=== PATIENT | male | born 1955 | race Caucasian/White ===

== ENCOUNTER 2016-10-07 16:36 | Observation (INO) | payer BC ==
[~2016-10-07] VITALS: Ht 180.3 cm; Wt 94.9 kg
[~2016-10-07 16:36] MED LIST: ASPI81TA3 PO; ATOR20TA65 PO; CANA300T PO; GABA100C14 PO; HYDR-906 PO; INSU100C SQ; LEVEM SC; LISI10TA2 PO; METF1000 PO; ONDA4TAB11 PO; REPA2TAB6 PO
[2016-10-07] MEDS ORDERED: SOD CHLORIDE 0.9% 1,000 ML IV STA (19:28)
[2016-10-07] MEDS ORDERED: ASPIRIN 325 MG TAB PO STA (19:28)
[2016-10-07 19:59] LABS: ADD SCAN DIFF NO
--- NOTE | 2016-10-07 20:04 | RADRPT ---
PROCEDURE: CT Brain without contrast. CLINICAL INDICATION: Left sided numbness TECHNIQUE: A CT of the brain was performed on a [employer] 64-slice CT scanner utilizing axial imaging from the skull base through the vertex without IV contrast. Multiplanar reformatted images were made. Images were reviewed on a PACS workstation. The CTDIvol is 44.8 mGy and the DLP is 720 mGycm. COMPARISON: None FINDINGS: There is no intracranial hemorrhage, mass effect, or midline shift. No extra-axial fluid collection is seen. The ventricles and sulci are normal in size and configuration. The density of the brain is normal, and the frausto white matter differentiation appears well-preserved. Scattered bilateral etho id air cell opacification. Otherwise, the visualized paranasal sinuses and osseous structures are gr ossly unremarkable. IMPRESSION: 1. No evidence of acute intracranial pathology. If there is continued clinical concern for acute in tracranial ischemia, consider MRI for further evaluation. Physician Ryan Date Time Electronically viewed and signed by Physician Ryan on 10/07/2016 20:03 ML/
[2016-10-07] MEDS ORDERED: IBUP-1542 PO (20:09)
[2016-10-07] MEDS ORDERED: NAPR125O4 PO (20:11)
[2016-10-07 20:18] LABS: INR 0.97; PROTIME 12.9 Sec (12.2-14.2)
--- NOTE | 2016-10-07 20:24 | RADRPT ---
PROCEDURE: XR Chest. CLINICAL INDICATION: Possible Stroke TECHNIQUE: Single frontal view of the chest was obtained. COMPARISON: None. FINDINGS: The heart and mediastinum are within normal limits. The lungs are clear. The aortic arch is calcified. There is no significant pleural effusion or pneumothorax. IMPRESSION: No acute disease. Aortic atherosclerosis. RPTAT: EE Physician Raven Date Time Electronically viewed and signed by Basim Gallo Physician on 10/07/2016 20:23 RA/
[2016-10-07 20:27] LABS: ALBUMIN 5.1 g/dl (3.3-4.9); CHLORIDE 96 mmol/L (97-110); PARTIAL THROMBOPLASTIN TIME 27.7 Sec (25.0-35.0); SODIUM 139 mmol/L (135-144)
[2016-10-07 20:28] LABS: BASOPHIL # 0.1 10^3/ul (0.0-0.1); BASOPHILS % 0.8 % (0.0-2.0); EOSINOPHILS # 0.2 10^3/ul (0.0-0.5); EOSINOPHILS % 2.8 % (0.0-7.0); HEMATOCRIT 49.5 % (42.0-52.0); HEMOGLOBIN 16.3 g/dl (14.0-18.0); LYMPHOCYTES # 1.7 10^3/ul (0.8-2.9); LYMPHOCYTES % 28.7 % (15.0-51.0); MEAN CORPUSCULAR HEMOGLOBIN 29.9 pg (29.0-33.0); MEAN CORPUSCULAR HGB CONC 32.9 g/dl (32.0-37.0); MEAN CORPUSCULAR VOLUME 90.7 fl (82.0-101.0); MEAN PLATELET VOLUME 10.2 fl (7.4-10.4); MONOCYTE # 1.1 10^3/ul (0.3-0.9); MONOCYTES % 17.5 % (0.0-11.0); NEUTROPHILS % 49.7 % (39.0-77.0); PLATELET COUNT 240 10^3/UL (140-415); RED BLOOD COUNT 5.46 10^6/ul (4.70-6.10); RED CELL DISTRIBUTION WIDTH 14.6 % (11.5-14.5); WHITE BLOOD COUNT 6.1 10^3/ul (4.8-10.8)
[2016-10-07 20:29] LABS: CREATININE 0.82 mg/dl (0.61-1.24)
[2016-10-07 20:30] LABS: ALANINE AMINOTRANSFERASE 34 IU/L (13-69); ALKALINE PHOSPHATASE 49 IU/L (42-121); ANION GAP 20 (8-16); ASPARTATE AMINO TRANSFERASE 27 IU/L (15-46); BILIRUBIN,INDIRECT 0.5 mg/dl (0-1.1); BILIRUBIN,TOTAL 0.5 mg/dl (0.2-1.3); BLOOD UREA NITROGEN 25 mg/dl (7-20); CALCIUM 10.7 mg/dl (8.4-10.2); CARBON DIOXIDE 27 mmol/L (21-31); GLUCOSE 103 mg/dl (70-220); TOTAL PROTEIN 8.5 g/dl (6.1-8.1)
[2016-10-07] MEDS ORDERED: SOD CHLORIDE 0.9% 1,000 ML IV SCH (21:47)
[2016-10-07 21:48] LABS: TROPONIN-I < 0.012 ng/ml (0.00-0.12)
--- NOTE | 2016-10-07 21:52 | ERA ---
ER Documentation Chief Complaint Date/Time DATE: 10/07/16 TIME: 21:50 Chief Complaint PT C/O LEFT SIDED FACIAL NUMBNESS LASTING 30 MINS, GONE NOW HPI This is a 61-year-old male who states at 5 PM developed some numbness in his fourth and fifth digits on his left hand lasted 10 minutes and spread to his hand entire teeth and into the forearm and up into the arm. He had another 10 minutes of numbness of the left upper extremity. The numbness then spread into the left face and tongue and gums for another 10 minutes or so then resolved. He said the entire episode lasted 35 minutes. He had no weakness no slurred speech no visual change completely asymptomatic now. Patient has a history of diabetes, hypertension, high cholesterol, no prior history of stroke ROS All systems reviewed and are negative except as per history of present illness. Medications Home Meds Active Scripts Ondansetron (Zofran Odt) 4 Mg Tab.rapdis, 4 MG PO Q6, #10 Prov:CLARE LUA 04/24/16 Reported Medications Naproxen* (Naproxen*) 125 Mg/5 Ml Oral.susp, 500 MG PO BID, ML 10/07/16 Ibuprofen* (Ibuprofen*) 600 Mg Tablet, 600 MG PO Q8, TAB 10/07/16 Gabapentin* (Gabapentin*) 100 Mg Capsule, 100 MG PO DAILY, #90 CAP 04/24/16 Insulin Detemir (Levemir) 100 Unit/1 Ml Vial, 18 UNIT SC QAM, VIAL 04/24/16 Insulin Lispro (Humalog) 100 Unit/1 Ml Cartridge, 6 UNIT SQ QHS 04/24/16 Aspirin* (Aspirin* Chew) 81 Mg Tab.chew, 81 MG PO DAILY, TAB.CHEW 10/19/15 Atorvastatin Calcium (Atorvastatin Calcium) 20 Mg Tablet, 20 MG PO QHS, #90 10/19/15 Lisinopril* (Lisinopril*) 10 Mg Tablet, 10 MG PO DAILY, #90 10/19/15 Metformin Hcl* (Metformin Hcl*) 1,000 Mg Tablet, 1000 MG PO BID, #180 10/19/15 Canagliflozin (Invokana) 300 Mg Tablet, 300 MG PO DAILY, #90 10/19/15 Discontinued Reported Medications Repaglinide* (Prandin*) 2 Mg Tablet, 4 MG PO TID, #540 10/19/15 Discontinued Scripts Hydrocodone/Acetaminophen (Frederick 5-325 Tablet) 1 Each Tablet, 1 EACH PO Q6, #10 TAB Prov:CLARE LUA DO 04/24/16 Allergies Allergies: Coded Allergies: No Known Allergy (Unverified , 10/07/16) PMhx/Soc History of Surgery: Yes (INGUINAL HERNIA ) Anesthesia Reaction: No Hx Neurological Disorder: No Hx Respiratory Disorders: No Hx Cardiac Disorders: No Hx Psychiatric Problems: No Hx Miscellaneous Medical Probl: Yes (DM) Hx Alcohol Use: No Hx Substance Use: No Hx Tobacco Use: No Smoking Status: Never smoker FmHx Family History: No coronary disease Physical Exam Vitals Vital Signs Date Time Temp Pulse Resp B/P Pulse Ox O2 Delivery O2 Flow Rate FiO2 10/07/16 16:51 98.3 90 17 142/77 90 Physical Exam Const: Well-developed, well-nourished Head: Atraumatic, normocephalic Eyes: Normal Conjunctiva, PERRLA, EOMI, normal sclera, no nystagmus ENT: Normal External Ears, Nose and Mouth, moist mucus membranes. Neck: Full range of motion. No meningismus, no lymphadenopathy. Resp: Clear to auscultation bilaterally, no wheezing, rhonchi, rales Cardio: Regular rate and rhythm, no murmurs, S1 S2 present Abd: Soft, non tender x 4, non distended. Normal bowel sounds, no guarding or rebound, no pulsitile abdominal masses or bruits Skin: No petechiae or rashes, no ecchymosis , no maculopapular rash Back: No midline or flank tenderness Ext: No cyanosis, or edema, FROM x 4, normal inspection, neurovascularly intact x 4 Neur: Awake and alert, STR 5/5 x 4, sensation intact x 4, no focal findings, cerebellum intact Psych: Normal Mood and Affect Result Diagram: 10/07/16193910/07/161939 Results 24 hrs Laboratory Tests Test 10/07/16 19:40 White Blood Count 6.110^3/ul Red Blood Count 5.4610^6/ul Hemoglobin 16.3g/dl Hematocrit 49.5% Mean Corpuscular Volume 90.7fl Mean Corpuscular Hemoglobin 29.9pg Mean Corpuscular Hemoglobin Concent 32.9g/dl Red Cell Distribution Width 14.6% Platelet Count 45240^3/UL Mean Platelet Volume 10.2fl Neutrophils % 49.7% Lymphocytes % 28.7% Monocytes % 17.5% Eosinophils % 2.8% Basophils % 0.8% Nucleated Red Blood Cells % 0.0/100WBC Neutrophils # 3.010^3/ul Lymphocytes # 1.710^3/ul Monocytes # 1.110^3/ul Eosinophils # 0.210^3/ul Basophils # 0.110^3/ul Nucleated Red Blood Cells # 0.010^3/ul Prothrombin Time 12.9Sec Prothrombin Time Ratio 1.0 INR International Normalized Ratio 0.97 Activated Partial Thromboplast Time 27.7Sec Sodium Level 139mmol/L Potassium Level 4.0mmol/L Chloride Level 96mmol/L Carbon Dioxide Level 27mmol/L Anion Gap 20 Blood Urea Nitrogen 25mg/dl Creatinine 0.82mg/dl Glucose Level 103mg/dl Calcium Level 10.7mg/dl Total Bilirubin 0.5mg/dl Direct Bilirubin 0.00mg/dl Indirect Bilirubin 0.5mg/dl Aspartate Amino Transf (AST/SGOT) 27IU/L Alanine Aminotransferase (ALT/SGPT) 34IU/L Alkaline Phosphatase 49IU/L Troponin I < 0.012ng/ml Total Protein 8.5g/dl Albumin 5.1g/dl Globulin 3.40g/dl Albumin/Globulin Ratio 1.50 Current Medications Medications (Trade) Dose Ordered Sig/Cornel Route PRN Reason Start Time Stop Time Status Last Admin Dose Admin Sodium Chloride (NS) 1,000 ml @ 1,000 mls/hr Q1H STAT IV 10/07/16 19:28 10/07/16 20:27 DC 10/07/16 19:44 Aspirin (Aspirin) 325 mg ONCE STAT PO 10/07/16 19:28 10/07/16 19:30 DC 10/07/16 19:43 Procedures/MDM EKG: Rate/Rhythm: Normal sinus rhythm with sinus arrhythmia QRS, ST, QT: NORMAL NH, QRS, QT] Impression: NORMAL EKG PROCEDURE: XR Chest. CLINICAL INDICATION: Possible Stroke TECHNIQUE: Single frontal view of the chest was obtained. COMPARISON: None. FINDINGS: The heart and mediastinum are within normal limits. The lungs are clear. The aortic arch is calcified. There is no significant pleural effusion or pneumothorax. IMPRESSION: No acute disease. Aortic atherosclerosis. RPTAT: EE Basim Gallo, Physician Date Time Electronically viewed and signed by Basim Gallo Physician on 10/07/2016 20:23 RA/ CC: RIO ZURITA DO PROCEDURE: CT Brain without contrast. CLINICAL INDICATION: Left sided numbness TECHNIQUE: A CT of the brain was performed on a [employer] 64-slice CT scanner utilizing axial imaging from the skull base through the vertex without IV contrast. Multiplanar reformatted images were made. Images were reviewed on a PACS workstation. The CTDIvol is 44.8 mGy and the DLP is 720 mGycm. COMPARISON: None FINDINGS: There is no intracranial hemorrhage, mass effect, or midline shift. No extra- axial fluid collection is seen. The ventricles and sulci are normal in size and configuration. The density of the brain is normal, and the frausto white matter differentiation appears well-preserved. Scattered bilateral ethoid air cell opacification. Otherwise, the visualized paranasal sinuses and osseous structures are grossly unremarkable. IMPRESSION: 1. No evidence of acute intracranial pathology. If there is continued clinical concern for acute intracranial ischemia, consider MRI for further evaluation. Dewey Khan, Physician Date Time Electronically viewed and signed by Dewey Khan Physician on 10/07/2016 20 :03 ML/ CC: RIO ZURITA DO Spoke with Dr. Starkey. Will admit the patient for observation, TIA work Departure Diagnosis: Primary Impression: TIA (transient ischemic attack) Qualified Code: G45.9 - Transient cerebral ischemia, unspecified type Condition: Stable RIO ZURITA DO Oct 07, 2016 21:52
[2016-10-07] MEDS ORDERED: ACETAMINOPHEN 325 MG TAB PO PRN ×2 (22:00→23:00)
[2016-10-07] MEDS ORDERED: ONDANSETRON 4 MG INJ IV PRN (22:00)
[2016-10-07] MEDS ORDERED: NAPR-260 PO (22:52)
[2016-10-07] MEDS ORDERED: DOCUSATE SODIUM 100 MG CAP PO PRN (23:00)
[2016-10-07] MEDS ORDERED: ZOLPIDEM 5 MG TAB PO PRN (23:00)
[2016-10-07] MEDS ORDERED: ONDANSETRON 4 MG TAB PO PRN (23:00)
[2016-10-07] MEDS ORDERED: HYDROCODONE/APAP (5/325) TAB PO PRN ×2 (23:00)
[2016-10-07] MEDS ORDERED: NACL 0.9% 3 ML SYG IV SCH (23:00)
[2016-10-07 23:13] VITALS: PULSE 77
[2016-10-07] MEDS ORDERED: GLUCOSE GEL 15 GRAM TUBE PO PRN ×2 (23:15)
[2016-10-07] MEDS ORDERED: GLUCOSE GEL 15 GRAM TUBE BUCCAL PRN (23:15)
[2016-10-07] MEDS ORDERED: DEXTROSE 50% 50 ML SYRINGE IV PRN ×2 (23:15)
[2016-10-07] MEDS ORDERED: GLUCAGON 1 MG INJ IM PRN (23:15)
[2016-10-08] VITALS (9 sets, daily range): BP systolic 111–152; BP diastolic 68–77; PULSE 53–94; RESP 16–20; Ht 180.3 cm; Wt 94.9 kg
[2016-10-08] MEDS ORDERED: ATORVASTATIN 20 MG TAB PO SCH (00:20)
[2016-10-08] MEDS ORDERED: INSULIN DETEMIR [LEVEMIR] 3ML CART SC ONE (00:30)
[2016-10-08] MEDS: FAMOTIDINE 20 MG TAB PO SCH ×2 (00:36→09:05)
[2016-10-08] MEDS: metFORMIN 500 MG TAB PO SCH ×3 (00:36→17:55)
[2016-10-08] MEDS ORDERED: NOVO3I SC (01:46)
[2016-10-08 03:28] LABS: ADD UMIC NO; URINE BILIRUBIN (Dip) NEGATIVE (NEGATIVE); URINE BLOOD (Dip) NEGATIVE (NEGATIVE); URINE COLOR LT. YELLOW (YELLOW); URINE GLUCOSE (Dip) >=1000 % (NEGATIVE); URINE KETONES (Dip) TRACE (NEGATIVE); URINE LEUKOCYTE ESTERASE (Dip) NEGATIVE (NEGATIVE); URINE NITRITE (Dip) NEGATIVE (NEGATIVE); URINE TOTAL PROTEIN (Dip) NEGATIVE (NEGATIVE); URINE UROBILINOGEN (Dip) 0.2 E.U./dL (0.1-1.0)
[2016-10-08 07:42] LABS: ADD SCAN DIFF NO
[2016-10-08 07:56] LABS: BASOPHIL # 0.1 10^3/ul (0.0-0.1); BASOPHILS % 0.8 % (0.0-2.0); EOSINOPHILS # 0.4 10^3/ul (0.0-0.5); EOSINOPHILS % 5.6 % (0.0-7.0); HEMATOCRIT 46.3 % (42.0-52.0); HEMOGLOBIN 15.6 g/dl (14.0-18.0); LYMPHOCYTES # 1.5 10^3/ul (0.8-2.9); LYMPHOCYTES % 23.4 % (15.0-51.0); MEAN CORPUSCULAR HEMOGLOBIN 30.4 pg (29.0-33.0); MEAN CORPUSCULAR HGB CONC 33.7 g/dl (32.0-37.0); MEAN CORPUSCULAR VOLUME 90.3 fl (82.0-101.0); MONOCYTE # 1.2 10^3/ul (0.3-0.9); MONOCYTES % 18.7 % (0.0-11.0); NEUTROPHIL # 3.2 10^3/ul (1.6-7.5); NEUTROPHILS % 51.2 % (39.0-77.0); PLATELET COUNT 238 10^3/UL (140-415); RED BLOOD COUNT 5.13 10^6/ul (4.70-6.10); RED CELL DISTRIBUTION WIDTH 14.3 % (11.5-14.5); WHITE BLOOD COUNT 6.2 10^3/ul (4.8-10.8)
[2016-10-08 08:02] LABS: CHOL/HDL RATIO 3.8 RATIO
[2016-10-08 08:05] LABS: CALCIUM 9.3 mg/dl (8.4-10.2); CREATININE 0.6 mg/dl (0.61-1.24); POTASSIUM 3.7 mmol/L (3.5-5.1)
[2016-10-08] MEDS ORDERED: ENOXAPARIN 40 MG/0.4 ML SYG SC SCH (09:00)
[2016-10-08] MEDS ORDERED: ASPIRIN 81 MG TAB PO SCH ×2 (09:00)
[2016-10-08] MEDS ORDERED: LISINOPRIL 10 MG TAB PO SCH (09:00)
[2016-10-08] MEDS ORDERED: NON-FORMULARY/PATIENT OWN MED (Canagliflozin (Invokana) 300 MG) PO SCH (09:00)
[2016-10-08] MEDS ORDERED: INSULIN DETEMIR [LEVEMIR] 3ML CART SC SCH ×2 (09:00→21:00)
[2016-10-08] MEDS ORDERED: GABAPENTIN 100 MG CAP PO SCH (09:00)
[2016-10-08] MEDS ORDERED: [UNRECOGNIZED DRUG - OTHER] XX SCH (09:30)
[2016-10-08 09:36] LABS: CREATINE KINASE 89 IU/L (23-200)
[2016-10-08 09:46] LABS: CK-MB 1.18 ng/ml (0.0-2.4)
[2016-10-08 09:50] LABS: TROPONIN-I < 0.012 ng/ml (0.00-0.12)
[2016-10-08] MEDS ORDERED: INSULIN ASPART [NOVOLOG] 3 ML PEN SC PRN (12:00)
[2016-10-08] MEDS ORDERED: REPAGLINIDE 1 MG TAB PO PRN (12:00)
[2016-10-08 12:11] LABS: CREATINE KINASE 84 IU/L (23-200)
--- NOTE | 2016-10-08 12:21 | PDOCDIS ---
Discharge Instructions CONDITION Patient Condition: Good HOME CARE INSTRUCTIONS: Special Diet: 1800 leonel ADA ACTIVITY: Activity Restrictions: No Restrictions FOLLOW UP/APPOINTMENTS Appointments Follow up with Dr Patel in 1 week Follow up with outpatient Computer Operations Specialist as needed Referral to Neurosurgery outpatient, Dr Herbie sanchez C6/C7 radiculopathy on Wednesday, patient will be contacted by [facility] for appt time KYMBERLY BYRD Oct 08, 2016 12:21
[2016-10-08] MEDS ORDERED: REPA1TAB14 PO (12:23)
[2016-10-08] MEDS ORDERED: LEVEM SC (12:23)
[2016-10-08 12:24] LABS: CK-MB 1.07 ng/ml (0.0-2.4)
[2016-10-08 12:25] LABS: TROPONIN-I < 0.012 ng/ml (0.00-0.12)
--- NOTE | 2016-10-08 12:29 | HP ---
DATE OF ADMISSION: 10/07/2016 ADMITTING PHYSICIAN: Dr. To CHIEF COMPLAINT ON ADMISSION: Left upper extremity numbness. HISTORY OF PRESENT ILLNESS: This is a 61-year-old gentleman with a history of diabetes mellitus, wh o has been well controlled actually, hyperlipidemia, neuropathy, again very well compliant with his medications, who yesterday while driving started having numbness on the tip of his left hand fingers and it started progressing upwards all the way towards his neck. Also involved the lower part of h is left face, including half of his mouth, the lip area. This progression happened over a period of 12 to 15 minutes. By the time he got to the emergency department it was completely resolved. Ther efore it lasted maybe a maximum of 30 minutes. The patient denies nausea, vomiting, dizziness, visu al changes, dysphagia, dysphonia, motor weakness of the upper or lower extremities. No symptoms on his right side. He denies any previous episodes. During the episode he did check his blood sugar, which was 106. He did check visually and he did not notice any drooping of the face. Currently all his symptoms are resolved. We are awaiting MRI of the brain, MRI of the C-spine. CAT scan of the brain was negative overnight and chest x-ray was also negative. ALLERGIES: SHELLFISH. PAST MEDICAL HISTORY: 1. Diabetes mellitus, insulin requiring. 2. Hyperlipidemia. 3. Neuropathy. PAST SURGICAL HISTORY: Status post left inguinal hernia repair at age 19. SOCIAL HISTORY: The patient was a former smoker, however he quit almost 30 years ago, in 1987. He smoked a pack a day for a total of 12 years. 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 OUTPATIENT MEDICATIONS: 1. Atorvastatin 20 mg p.o. at bedtime. 2. Lisinopril 10 mg p.o. daily. 3. Aspirin 81 mg p.o. daily. 4. Naprosyn 500 mg p.o. b.i.d. 5. Ibuprofen 600 mg p.o. q. 8 hours, as needed only. 6. Invokana 300 mg p.o. daily in the a.m. 7. Levemir 18 units subcutaneously at bedtime. 8. Insulin Aspart 6 units subcutaneously before meals as needed. 9. Metformin 1000 mg p.o. b.i.d. 10. Prandin 4 mg p.o. t.i.d. with meals as needed. PHYSICAL EXAMINATION: VITAL SIGNS: Temperature is 98.4, heart rate of 77 and sinus rhythm, respiratory rate of 20, blood pressure 118/68. Patient is saturating 95% on room air. GENERAL: He is alert and oriented x4. He is in no acute distress currently. All his symptoms are resolved. HEENT: Pupils are equally round and reactive to light. Extraocular muscles are intact. Anicteric sclerae. NECK: No JVD, no thyromegaly noted. HEART: Regular rate and rhythm. No murmur, rubs, or gallops. LUNGS: Clear to auscultation bilaterally. ABDOMEN: Soft, nontender, nondistended. Bowel sounds are present. EXTREMITIES: No edema, clubbing or cyanosis. NEUROLOGIC: Grossly intact currently. No numbness at all. Motor strength is 5/5 for upper and low er extremities. Cranial nerves II through XII are intact. Gait has not been tested. manipulative therapy specialist apy has been ordered. LABORATORY DATA: White blood cell count 6.2, hemoglobin 15.6, hematocrit 46.3, platelet count of 23 8. Chemistry with a sodium of 137, potassium 3.7, chloride 102, bicarbonate 25, BUN 19, creatinine 0.60. Glucose was 106 this morning. Fasting hemoglobin A1c 6.0, calcium of 9.3. Triglycerides 131 , cholesterol 166, LDL 97, HDL 43, TSH 2.180. INR 0.97. PT 12.9, PTT 27.7. Urinalysis is negative . RADIOLOGICAL DATA: 1. Chest x-ray shows no acute disease. Aortic atherosclerosis. 2. CAT scan of the brain shows no acute intracranial pathology. 3. MRI of the brain and MRI of the C-spine is pending. EKG shows a normal sinus rhythm. No acute ST or T-wave abnormalities. ASSESSMENT AND PLAN: This is a 61-year-old male with: 1. Likely transient ischemic attack symptoms, with mostly sensory deficits, which are now resolved. Given the unilaterally and the fact that only the upper limb was involved, MRI of the brain is pen ding, but also MRI of the cervical spine. The patient is already on aspirin. Will also order carot id Dopplers if they were not done yet. The patient is completely asymptomatic currently. 2. Diabetes mellitus, insulin requiring. Will continue his outpatient regimen. The patient is und er the care of Dr. Rushing, endocrinology, as an outpatient. His hemoglobin A1c is 6.0. 3. Hyperlipidemia. The patient is currently on Lipitor and his fasting lipid panel is fairly stabl e and adequate. 4. Neuropathy. The patient has been on some anti-inflammatory, Naprosyn, and he did report that he is also taking Pepcid as an outpatient. 5. Prophylaxis. The patient is on Lovenox for deep vein thrombosis prophylaxis. DISPOSITION: MRIs are pending. Will add a carotid Doppler also to complete the workup at this point . The patient is on aspirin, to be continued for now until MRI results are available. Dictated By: KYMBERLY MALHOTRA/YO Conf#: [id number] DID#: [id number]
[2016-10-08] MEDS ORDERED: GUAIFENESIN/DM 5ML CUP PO PRN (13:30)
--- NOTE | 2016-10-08 13:55 | RADRPT ---
PROCEDURE: US Carotids. CLINICAL INDICATION: bruit , TIA TECHNIQUE: Multiple sonographic of the carotid bifurcation region and vertebral arteries were obta ined utilizing frausto scale, duplex and color-flow imaging. The images were reviewed on a PACS worksta tion. COMPARISON: No prior studies are available for comparison. FINDINGS: Evaluation of the right carotid bifurcation region reveals no significant calcific atherosclerotic d isease. Evaluation of the left carotid bifurcation region reveals no significant calcific atherosclerotic di sease. There is antegrade flow within the vertebral arteries bilaterally. RIGHT CAROTID MEASUREMENTS: Common Carotid Fbvcfy51.5 (cm/sec) Internal Carotid Artery - eqsvbrhy65.2 (cm/sec) Internal Carotid Artery - mid57.7 (cm/sec) Internal Carotid Artery - rlhiiw38.1 (cm/sec) Internal Carotid/Common Carotid0.78 LEFT CAROTID MEASUREMENTS: Common Carotid Teghrp881.7 (cm/sec) Internal Carotid Artery - rcaagewx67.8 (cm/sec) Internal Carotid Artery - mid60.7 (cm/sec) Internal Carotid Artery - ncynia03.9 (cm/sec) Internal Carotid/Common Carotid1 RPTAT: AA IMPRESSION: No evidence for hemodynamically significant stenosis in the bilateral internal carotid arteries - va lidated velocity measurements with angiographic measurements, velocity criteria are extrapolated fro m diameter data as defined by the Society of Radiologists in Ultrasound Consensus Conference Radiolo gy 2003; 229;340-346. This study does indirectly reference the measurement of the distal ICA diamet er as the denominator for stenosis measurement. Normal antegrade flow in the vertebral arteries bilaterally. .Raffy Cortés MD, Date Time Electronically viewed and signed by .Raffy Cortés MD, on 10/08/2016 13:54 .S/
[2016-10-08] MEDS ORDERED: REPAGLINIDE 2 MG TAB PO ONE (14:00)
--- NOTE | 2016-10-08 16:14 | RADRPT ---
PROCEDURE: MR Brain with and without contrast. CLINICAL INDICATION: Transit ischemic attack. Arm numbness. TECHNIQUE: Multiplanar multisequence MRI of the brain was performed before and after the administrat ion of 10 cc of Magnevist. COMPARISON: Noncontrast CT of the head from October 07, 2016. FINDINGS: The ventricles and sulci are within normal limits. There is a partially empty sella turcica. The bilateral hippocampi are normal in size without abnorm al signal to suggest mesial temporal sclerosis. There is no abnormal intracranial enhancement. There is no acute infarction. There is no intracranial hemorrhage or extra-axial fluid collection. There is no mass effect. There is no midline shift. The brainstem is within normal limits. The posterior fossa is unremarkable. The normal intracranial, intravascular flow voids are preserved. There is a small left maxillary sinus mucous retention cyst/polyp. The orbits are grossly unremarkable. There is no destructive osseous lesion. There is a sub centimeter left nasopharyngeal mucous retenti on cyst/polyp. IMPRESSION: 1. No acute infarction or intracranial hemorrhage. 2. No abnormal intracranial enhancement. 3. Partially empty sella turcica. Further findings as detailed above. RPTAT: AA .Edmar Jackson MD, Date Time Electronically viewed and signed by .Edmar Jackson MD, on 10/08/2016 16:14 .F/
--- NOTE | 2016-10-08 16:16 | RADRPT ---
PROCEDURE: MR Cervical Spine noncontrast. CLINICAL INDICATION: Radiculopathy. Arm numbness. TECHNIQUE: Multiplanar multisequence noncontrast MRI of the cervical spine was performed. COMPARISON: There are no similar studies submitted for comparison. FINDINGS: There is a normal cervical lordosis. The vertebral body heights are maintained. There is normal alignment. There is no destructive osseous lesion. There is no abnormal bone marrow edema. There is disk desiccation from C2-C3 to C6-C7. The spinal cord is normal in caliber. The spinal cord is normal in signal. C2-C3 : There is a 1 mm central disk/osteophyte protrusion without spinal canal or bilateral foramin al stenosis. C3-C4 : There is a 1 mm central disk/osteophyte protrusion without spinal canal or bilateral foramin al stenosis. C4-C5 : There is a 1 mm broad-based disk osteophyte complex without spinal canal stenosis. There is mild left facet arthropathy and bilateral uncovertebral hypertrophy causing mild to moderate left w ith mild right foraminal stenosis. C5-C6 : There is severe disk space narrowing. There is a 2 mm right paracentral disk/osteophyte pro trusion without spinal canal stenosis. There is mild bilateral facet arthropathy and bilateral unco vertebral hypertrophy causing severe right with moderate to severe left foraminal stenosis. This af fects the exiting bilateral C6 nerve roots. C6-C7 : There is severe disk space narrowing. There is a 2 mm circumferential disk osteophyte compl ex with mild spinal canal stenosis. There is mild bilateral facet arthropathy and bilateral uncover tebral hypertrophy causing moderate to severe bilateral foraminal stenosis. This likely affects the exiting bilateral C7 nerve roots. C7-T1 : There is no disc herniation, spinal canal, or foraminal stenosis. The paravertebral musculature are within normal limits. There is a 7 mm left thyroid nodule. There i s a sub centimeter left nasopharyngeal mucous retention cysts. There is a 1 cm lobulated cystic lesi on within the root of the tongue abutting the hyoid bone (image 4 series 4) which is indeterminate b ut may be related to a thyroglossal duct remnant/thyroglossal duct cyst. IMPRESSION: 1. C5-C6 right paracentral disk/osteophyte protrusion with severe right and moderate to severe left foraminal stenosis. This affects the exiting bilateral C6 nerve roots. 2. C6-C7 circumferential disk osteophyte complex with mild spinal canal stenosis. There is moderat e to severe bilateral foraminal stenosis. This likely affects the exiting bilateral C7 nerve roots. 3. No abnormal bone marrow edema. 4. There is a 7 mm left thyroid nodule. Ultrasound of the thyroid is recommended as well as correla tion with serum chemistries. Tissue sampling may be performed given size as clinically warranted. 5. There is a 1 cm lobulated cystic lesion within the root of the tongue abutting the hyoid bone whi ch is indeterminate but may be related to a thyroglossal duct remnant/thyroglossal duct cyst. Further findings as detailed above. RPTAT: AA .Edmar Jackson MD, MD Date Time Electronically viewed and signed by .Edmar Jackson MD, on 10/08/2016 16:16 .F/
[2016-10-09] MEDS ORDERED: SPECIAL NON-STANDARD MEDICATION PO SCH (09:00)
== END 2016-10-08 18:10 | disposition home or self-care (01) ==
LOC: FTE 16:36 → MS2 21:49 → TEL 23:34
PROVIDERS: ADMIT Internal Medicine; ATTEND Internal Medicine
DX: G45.9 Transient cerebral ischemic attack, unspecified (principal); E11.40 Type 2 diabetes mellitus with diabetic neuropathy, unspecified; Z79.4 Long term (current) use of insulin; Z79.82 Long term (current) use of aspirin; E78.5 Hyperlipidemia, unspecified; Z87.891 Personal history of nicotine dependence
CPT/HCPCS: 36415; 70450; 70552; 71010; 72141; 80048; 80053; 80061; 81003; 82550; 82553; 82962; 83036; 84443; 84484; 85025; 85610; 85730; 93005; 93880; 96372; 99285; G0378; J1815; J7030; J1650